=== PATIENT | female | born 1990 | race Caucasian/White ===

== ENCOUNTER 2017-05-03 09:09 | Emergency (ER) | payer OTHER ==
[~2017-05-03] VITALS: Ht 160 cm; Wt 95.4 kg
[~2017-05-03 09:09] MED LIST: AMBIEN10 MG PO; AMOXICILLIN500 M1 PO; ASPIRIN81 M2 PO; CLONAZEPAM1 MG PO; COLACE100 MG PO; KLONOPIN1 MG PO; MACROBID100 MG PO; METHADONE PO; METHADONE10 MG; METHADONE10 MG PO; METHADOSE10 MG PO; METHADOSE40 MG PO; PHENERGAN25 MG PO; PHENERGAN25 MG PR; PRENATAL VITAM1 EAC1 PO; PRENATAL1 EACH PO; PROMETHAZINE12.5 M1 PO; PROZAC20 M1 PO; PYRIDIUM200 MG PO; ROXICET 5-3251 EACH PO; SEROQUEL200 MG PO; SEROQUEL300 MG PO; SPRINTEC1 EACH PO; VICODIN 5-3001 EACH PO; VICODIN,LORT1 TABLET PO; VYVANSE70 MG PO; ZOFRAN4 MG PO; ZOLOFT100 MG PO
[2017-05-03] MEDS ORDERED: BENTYL20 MG PO (13:51)
[2017-05-03 15:14] VITALS: BP 128/72
== END 2017-05-03 15:14 | disposition home or self-care (01) ==
LOC: EME 09:09
DX: R10.10 Upper abdominal pain, unspecified (principal); J06.9 Acute upper respiratory infection, unspecified; K59.00 Constipation, unspecified; F41.9 Anxiety disorder, unspecified; F32.9 Major depressive disorder, single episode, unspecified; Z87.891 Personal history of nicotine dependence; Z88.0 Allergy status to penicillin
CPT/HCPCS: 74020; 99281; 99284